=== PATIENT | male | born 2000 | race Caucasian/White ===

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

== ENCOUNTER → 2020-07-25 | Outpatient (CLI) | payer BC ==
--- NOTE | 2020-07-26 08:45 | USB ---
Reason for exam: clinical finding. Indicated problem(s): lump or thickening in the right breast. Physical Findings: Nurse Summary: Patient complains of right breast lump x 3 years, enlarging per patient (nurse mj). US Breast RT Technologist: Tana Leo Right complete breast ultrasound includes all four quadrants, the retroareolar region and axilla. Finding demonstrates no cystic or solid lesion seen. Right side thicker than left, this is stable from comparison 08/18/17. These results were verbally communicated with the patient and result sheet given to the patient on 07/25/20. ASSESSMENT: Negative, BI-RAD 1 RECOMMENDATION: Clinical management of the right breast. Manage on a clinical basis with regard to asymmetry.
== END ==
LOC: RADUSWWP 14:48
PROVIDERS: ATTEND Surgery
DX: N64.89 Other specified disorders of breast (principal)

== ENCOUNTER → 2021-12-11 | Outpatient (CLI) | payer OTHER ==
--- NOTE | 2021-12-11 15:24 | XR ---
Left foot and left ankle HISTORY: Trauma and pain 3 views of the left foot, 3 views of the left ankle There is a minimally displaced proximal fifth metatarsal fracture. No evident dislocation. There is s ome soft tissue swelling noted laterally. IMPRESSION: Proximal fifth metatarsal fracture as described
== END | disposition home or self-care (01) ==
LOC: RADXRMAIN 14:51
PROVIDERS: ATTEND Emergency Medicine
DX: S93.402A Sprain of unspecified ligament of left ankle, initial encounter (principal); S93.602A Unspecified sprain of left foot, initial encounter; X58.XXXA Exposure to other specified factors, initial encounter

== ENCOUNTER 2022-02-21 06:32 | Observation (INO) | payer BC ==
[2022-02-21] MEDS ORDERED: ONDANSETRON 4 MG/2 ML VIAL IVP STA (07:01)
[2022-02-21] MEDS ORDERED: KETOROLAC 15 MG/ML 1 ML VIAL IVP STA (07:01)
[2022-02-21] MEDS ORDERED: SODIUM CHLORIDE 0.9% 1,000 ML IV STA (07:01)
[2022-02-21] MEDS ORDERED: FAMOTIDINE 20 MG/2 ML VIAL IV STA (07:02)
--- NOTE | 2022-02-21 07:07 | ED ---
Abdominal Pain HPI - General Chief Complaint: Abdominal Pain Stated Complaint: Abd Pain Time Seen by Provider: 02/21/22 06:48 Source: patient, RN notes reviewed, old records reviewed Mode of arrival: ambulatory Limitations: no limitations - History of Present Illness Initial Comments: This is a nontoxic-appearing 21-year-old male that presents to the emergency room with 2 weeks of sharp right lower quadrant pain that is progressively getting worse. Patient states he developed nausea and vomiting at 10:30 last night that was yellow in color. He does have chills but did not document a fever. SX: adenoidectomy, no other surgical history. He does vape, denies marijuana or cigarette use. MD Complaint: abdominal pain -: week(s) (2) Location: RLQ Radiation: none Severity scale (1-10): 6 Quality: sharp Consistency: constant Worsens With: other (palpation) Associated Symptoms: nausea, vomiting, diarrhea, chills - Related Data Home Medications Medication Instructions Recorded Confirmed No Known Home Medications 02/21/22 02/21/22 Allergies Allergy/AdvReac Type Severity Reaction Status Date / Time No Known Allergies Allergy Verified 02/21/22 10:00 Review of Systems ROS Statement: Those systems with pertinent positive or pertinent negative responses have been documented in the HPI. ROS Other: All systems not noted in ROS Statement are negative. Past Medical History Past Medical History: No Reported History History of Any Multi-Drug Resistant Organisms: None Reported Past Surgical History: Adenoidectomy Past Psychological History: No Psychological Hx Reported Smoking Status: Former smoker Past Alcohol Use History: Occasional Past Drug Use History: None Reported General Exam Limitations: no limitations General appearance: alert, in no apparent distress Head exam: Present: atraumatic Eye exam: Present: normal appearance. Absent: scleral icterus, conjunctival inj ection ENT exam: Present: mucous membranes moist Neck exam: Present: full ROM. Absent: tenderness, meningismus Respiratory exam: Present: normal lung sounds bilaterally. Absent: respiratory distress, wheezes, rales, rhonchi, stridor, chest wall tenderness, accessory muscle use Cardiovascular Exam: Present: regular rate GI/Abdominal exam: Present: soft, tenderness (Right lower quadrant). Absent: distended, guarding, rebound, rigid Extremities exam: Present: full ROM, normal capillary refill. Absent: tenderness, pedal edema Back exam: Present: normal inspection, full ROM. Absent: tenderness, CVA tenderness (R), CVA tenderness (L), rash noted Neurological exam: Present: alert, oriented X3 Psychiatric exam: Present: normal affect, normal mood Skin exam: Present: warm, dry, normal color. Absent: cyanosis, diaphoretic, petechiae, pallor Course Vital Signs 02/21/22 06:40 Temperature 97.8 F Pulse Rate 75 Respiratory 16 Rate Blood Pressure 125/74 O2 Sat by Pulse 98 Oximetry Medical Decision Making - Medical Decision Making Ultrasound shows thickened in hyperemic appendix reflecting early changes of acute appendicitis no evidence of abscess. There is leukocytosis with right lower quadrant pain. CT ordered per Dr. Lomeli, shows a thickened appendix without surrounding inflammatory change or appendicolith, findings may reflect mild early acute appendicitis. Patient will be admitted to Dr Lomeli for appendectomy. Patient and parents notified of results and plan of care. All are agreeable. VSS - Lab Data Result diagrams: 02/21/22 07:46 02/21/22 07:14 Lab Results 02/21/22 02/21/22 02/21/22 Range/Units 07:14 07:14 07:46 WBC 13.0 H (3.8-10.6) k/uL RBC 4.99 (4.30-5.90) m/uL Hgb 15.3 (13.0-17.5) gm/dL Hct 44.4 (39.0-53.0) % MCV 89.0 (80.0-100.0) fL MCH 30.6 (25.0-35.0) pg MCHC 34.4 (31.0-37.0) g/dL RDW 12.2 (11.5-15.5) % Plt Count 202 (150-450) k/uL MPV 7.9 Neutrophils % 89 % Lymphocytes % 4 % Monocytes % 5 % Eosinophils % 1 % Basophils % 0 % Neutrophils # 11.6 H (1.3-7.7) k/uL Lymphocytes # 0.5 L (1.0-4.8) k/uL Monocytes # 0.6 (0-1.0) k/uL Eosinophils # 0.2 (0-0.7) k/uL Basophils # 0.1 (0-0.2) k/uL Sodium 141 (137-145) mmol/L Potassium 4.1 (3.5-5.1) mmol/L Chloride 100 (98-107) mmol/L Carbon Dioxide 24 (22-30) mmol/L Anion Gap 17 mmol/L BUN 10 (9-20) mg/dL Creatinine 0.95 (0.66-1.25) mg/dL Est GFR (CKD-EPI)AfAm >90 (>60 ml/min/1.73 sqM) Est GFR (CKD-EPI)NonAf >90 (>60 ml/min/1.73 sqM) Glucose 96 (74-99) mg/dL Plasma Lactic Acid Ish 1.0 (0.7-2.0) mmol/L Calcium 10.4 H (8.4-10.2) mg/dL Total Bilirubin 1.3 (0.2-1.3) mg/dL AST 24 (17-59) U/L ALT 14 (4-49) U/L Alkaline Phosphatase 64 (38-126) U/L Total Protein 8.1 (6.3-8.2) g/dL Albumin 5.5 H (3.5-5.0) g/dL Amylase 45 (30-110) U/L Lipase 60 (23-300) U/L Disposition Clinical Impression: Appendicitis Disposition: ADMITTED IP TO THIS [facility] Decision Date: 02/21/22 Decision Time: 08:17
[2022-02-21 07:27] LABS: ALT 14 U/L (4-49); AST 24 U/L (17-59); African American GFR (CKD) >90 (>60 ml/min/1.73 sqM); Albumin 5.5 g/dL (3.5-5.0); Alkaline Phosphatase 64 U/L (38-126); Amylase 45 U/L (30-110); Anion Gap 17 mmol/L; Blood Urea Nitrogen 10 mg/dL (9-20); Calcium 10.4 mg/dL (8.4-10.2); Carbon Dioxide 24 mmol/L (22-30); Chloride 100 mmol/L (98-107); Glucose 96 mg/dL (74-99); Lipase 60 U/L (23-300); Non-African American GFR(CKD) >90 (>60 ml/min/1.73 sqM); Potassium 4.1 mmol/L (3.5-5.1); Sodium 141 mmol/L (137-145); Total Bilirubin 1.3 mg/dL (0.2-1.3); Total Protein 8.1 g/dL (6.3-8.2)
[2022-02-21 07:52] LABS: Basophils # (A) 0.1 k/uL (0-0.2); Basophils % (A) 0 %; Eosinophils # (A) 0.2 k/uL (0-0.7); Eosinophils % (A) 1 %; HCT 44.4 % (39.0-53.0); HGB 15.3 gm/dL (13.0-17.5); Lymphocytes # (A) 0.5 k/uL (1.0-4.8); Lymphocytes % (A) 4 %; MCH 30.6 pg (25.0-35.0); MCHC 34.4 g/dL (31.0-37.0); Mean Platelet Volume 7.9; Monocytes # (A) 0.6 k/uL (0-1.0); Monocytes % (A) 5 %; Neutrophils # (A) 11.6 k/uL (1.3-7.7); Neutrophils % (A) 89 %; Platelet Count 202 k/uL (150-450); RBC 4.99 m/uL (4.30-5.90); RDW 12.2 % (11.5-15.5)
--- NOTE | 2022-02-21 08:07 | US ---
EXAMINATION TYPE: US abdomen APPY DATE OF EXAM: 02/21/2022 COMPARISON: NONE CLINICAL HISTORY: RLQ pain with vomiting TECHNIQUE: Multiple sonographic images of the right lower quadrant were obtained with graded compress ion. FINDINGS: APPENDIX AP Diameter (normal < 6mm): 8.8 mm Measured outer wall to outer wall. Is the appendix seen in its entirety from the proximal cecum to distal end: Yes Is the appendix compressible: No Does the appendix wall appear hypervascular: Yes Is an appendicolith present: No Is there inflammatory changes or free fluid present: No IMPRESSION: Thickened and hyperemic appendix may reflect early changes of the acute appendicitis. No evidence for abscess. Correlate clinically.
[2022-02-21] MEDS ORDERED: metroNIDAZOLE-NS PMX 500 MG in SALINE 1 100ML.BAG IVPB STA (08:15)
[2022-02-21] MEDS ORDERED: cefTRIAXone IN SWFI 1,000 MG/10 ML SYRINGE IVP STA (08:15)
--- NOTE | 2022-02-21 08:55 | CT ---
EXAMINATION TYPE: CT abdomen pelvis w con DATE OF EXAM: 02/21/2022 COMPARISON: None HISTORY: APPY CT DLP: 740.6 mGycm CONTRAST: CT scan of the abdomen and pelvis is performed without Oral Contrast and with IV Contrast, patient in jected with 100 mL of Isovue 300. FINDINGS: LUNG BASES-: No visible nodule. No infiltrate. LIVER/GB: No calcified gallstones. No space occupying hepatic lesion. Biliary tree is of normal ca liber. PANCREAS: No inflammation. No distinct mass. SPLEEN: No splenic enlargement. No lesion seen. ADRENALS: No nodule. No thickening. KIDNEYS/BLADDER: No hydronephrosis. No nephrolithiasis. No distinct renal mass. Urinary bladder g rossly unremarkable. BOWEL: The appendix is thickened up to 1 cm. No surrounding inflammatory change. No evidence for absc ess or perforation. Normal bowel caliber. No inflammation. GENITAL ORGANS: No gross abnormality. LYMPH NODES: No greater than 1cm abdominal or pelvic lymph nodes are appreciated. AORTA: No significant abnormality. OSSEOUS STRUCTURES: No significant abnormality is seen. OTHER: No significant additional abnormality is seen. IMPRESSION: 1. Thickened appendix without surrounding inflammatory change or appendicolith. The findings may refl ect mild early acute appendicitis.
[2022-02-21] MEDS ORDERED: HYDROmorphone 0.5 MG/0.5 ML SYRINGE IVP PRN (09:34)
[2022-02-21] MEDS ORDERED: NALOXONE 0.4 MG/ML 1 ML VIAL IV PRN (09:34)
[2022-02-21] MEDS: SODIUM CHLORIDE 0.9% 1,000 ML IV SCH ×2 (09:42→22:22)
[2022-02-21] MEDS ORDERED: ONDANSETRON 4 MG/2 ML VIAL IVP PRN (10:08)
--- NOTE | 2022-02-21 10:09 | P.GSHP ---
History of Present Illness H&P Date: 02/21/22 CHIEF COMPLAINT: Right lower quadrant abdominal pain HISTORY OF PRESENT ILLNESS: This is a 21-year-old male sent to the ER with complaints of right lower quadrant abdominal pain. His pain became very severe yesterday with multiple episodes of nausea and vomiting starting last night. He also has had chills. Patient reports that over the last 2 weeks he's had some intermittent sharp pains in the right lower quadrant that only lasted a few minutes and resolved on their own. Patient had computed tomography scan abdomen and pelvis showing evidence of a thickened appendix and possible early signs of mild acute appendicitis. Patient has been admitted to the hospital with appendicitis. He had evidence of leukocytosis. He denies any prior abdominal surgical history. Denies any cardiac history. PAST MEDICAL HISTORY: See list. PAST SURGICAL HISTORY: See list. MEDICATIONS: See list. ALLERGIES: See list. SOCIAL HISTORY: No illicit drug use. Denies marijuana or cigarette use. He does vape. REVIEW OF SYSTEMS: CONSTITUTIONAL: Denies fever or chills. HEENT: Denies blurred vision, vision changes, or eye pain. Denies hemoptysis CARDIOVASCULAR: Denies chest pain or pressure. RESPIRATORY: No shortness of breath. GASTROINTESTINAL: See HPI for pertinent findings HEMATOLOGIC: Denies bleeding disorders. GENITOURINARY: Denies any blood in urine or increased urinary frequency. SKIN: Denies pruitis. Denies rash. PHYSICAL EXAM: VITAL SIGNS: Reviewed GENERAL: Well-developed in no acute distress. HEENT: No sclera icterus. Extraocular movements grossly intact. Moist buccal mucosa. Head is atraumatic, normocephalic. No nasal drainage. ABDOMEN: Soft. Nondistended. Right lower quadrant tenderness with palpation NEUROLOGIC: Alert and oriented. Cranial nerves II through XII grossly intact. LABORATORY DATA: WBC is 13 hgb 15.3 platelet 202 Sodium 141 potassium 4.1 creatinine 0.95 lactic acid 1.0 Lipase 60 LFTs IMAGING: Abdominal ultrasound thickened and hyperemic appendix may reflect early changes of acute appendicitis. No evidence of abscess. Computed tomography scan of abdomen and pelvis showing thickened appendix with SURROUNDING inflammatory changes or appendicolith. The findings may reflect mild early acute appendicitis. ASSESSMENT: 1. Acute appendicitis PLAN: -Patient scheduled for laparoscopic appendectomy today with Dr. Lomeli -Keep patient nothing by mouth -Continue antibiotics -Continue IV fluids -Continue pain medication and antiemetics as needed Physician It Systems Analyst Consultant note has been reviewed by physician. Signing provider agrees with the documented findings, assessment, and plan of care. I have personally seen and examined the patient, reviewed the POLITICAL CONSULTANT /PAs history, exam and MDM and agree with the assessment and plan as written. Based on total visit time, I have performed more than 50% of the visit. As above: Patient with right lower quadrant pain and tenderness. Ultrasound and CAT scan consistent with acute appendicitis. Will proceed with laparoscopic, possible open appendectomy at this time. Risks of bleeding, infection, scarring, bladder bowel and ureteral injury, abscess, hernia, conversion reviewed. He understands and wishes to proceed. Past Medical History Past Medical History: No Reported History History of Any Multi-Drug Resistant Organisms: None Reported Past Surgical History: Adenoidectomy Past Psychological History: No Psychological Hx Reported Smoking Status: Former smoker Past Alcohol Use History: Occasional Past Drug Use History: None Reported Medications and Allergies Home Medications Medication Instructions Recorded Confirmed Type No Known Home Medications 02/21/22 02/21/22 History Allergies Allergy/AdvReac Type Severity Reaction Status Date / Time No Known Allergies Allergy Verified 02/21/22 10:00 Surgical - Exam Vital Signs Temp Pulse Resp BP Pulse Ox 97.8 F 75 16 125/74 98 02/21/22 06:40 02/21/22 06:40 02/21/22 06:40 02/21/22 06:40 02/21/22 06:40 Results - Labs 02/21/22 07:46 02/21/22 07:14 Abnormal Lab Results - Last 24 Hours (Table) 02/21/22 02/21/22 Range/Units 07:14 07:46 WBC 13.0 H (3.8-10.6) k/uL Neutrophils # 11.6 H (1.3-7.7) k/uL Lymphocytes # 0.5 L (1.0-4.8) k/uL Calcium 10.4 H (8.4-10.2) mg/dL Albumin 5.5 H (3.5-5.0) g/dL Diabetes panel 02/21/22 Range/Units 07:14 Sodium 141 (137-145) mmol/L Potassium 4.1 (3.5-5.1) mmol/L Chloride 100 (98-107) mmol/L Carbon Dioxide 24 (22-30) mmol/L BUN 10 (9-20) mg/dL Creatinine 0.95 (0.66-1.25) mg/dL Glucose 96 (74-99) mg/dL Calcium 10.4 H (8.4-10.2) mg/dL AST 24 (17-59) U/L ALT 14 (4-49) U/L Alkaline Phosphatase 64 (38-126) U/L Total Protein 8.1 (6.3-8.2) g/dL Albumin 5.5 H (3.5-5.0) g/dL Calcium panel 02/21/22 Range/Units 07:14 Calcium 10.4 H (8.4-10.2) mg/dL Albumin 5.5 H (3.5-5.0) g/dL Pituitary panel 02/21/22 Range/Units 07:14 Sodium 141 (137-145) mmol/L Potassium 4.1 (3.5-5.1) mmol/L Chloride 100 (98-107) mmol/L Carbon Dioxide 24 (22-30) mmol/L BUN 10 (9-20) mg/dL Creatinine 0.95 (0.66-1.25) mg/dL Glucose 96 (74-99) mg/dL Calcium 10.4 H (8.4-10.2) mg/dL Adrenal panel 02/21/22 Range/Units 07:14 Sodium 141 (137-145) mmol/L Potassium 4.1 (3.5-5.1) mmol/L Chloride 100 (98-107) mmol/L Carbon Dioxide 24 (22-30) mmol/L BUN 10 (9-20) mg/dL Creatinine 0.95 (0.66-1.25) mg/dL Glucose 96 (74-99) mg/dL Calcium 10.4 H (8.4-10.2) mg/dL Total Bilirubin 1.3 (0.2-1.3) mg/dL AST 24 (17-59) U/L ALT 14 (4-49) U/L Alkaline Phosphatase 64 (38-126) U/L Total Protein 8.1 (6.3-8.2) g/dL Albumin 5.5 H (3.5-5.0) g/dL
[2022-02-21] MEDS ORDERED: IV FLUID CONTINUATION 1,000 ML IV ONE (14:47)
[2022-02-21] MEDS ORDERED: HEPARIN SODIUM,PORCINE/PF 5,000 UNIT/0.5 ML SYRINGE SQ ONE (14:57)
[2022-02-21] MEDS ORDERED: HEPARIN SODIUM,PORCINE 5,000 UNIT/ML 1 ML VIAL SQ ONE (15:01)
[2022-02-21] MEDS ORDERED: ROCURONIUM 10 MG/ML (5 ML VIAL) IV ONE (15:25)
[2022-02-21] MEDS ORDERED: SUCCINYLCHOLINE CHLORIDE 200 MG/10 ML VIAL IV ONE (15:25)
[2022-02-21] MEDS ORDERED: fentaNYL (PF) 50 MCG/ML 2 ML AMP ONE (15:25)
[2022-02-21] MEDS ORDERED: NEOSTIGMINE 1 MG/ML 10 ML VIAL ONE (15:25)
[2022-02-21] MEDS ORDERED: PROPOFOL 10 MG/ML 20 ML VIAL IV ONE (15:25)
[2022-02-21] MEDS ORDERED: MIDAZOLAM 2 MG/2 ML VIAL ONE (15:25)
[2022-02-21] MEDS ORDERED: GLYCOPYRROLATE 0.2 MG/ML 2 ML VIAL ONE (15:25)
[2022-02-21] MEDS ORDERED: LIDOCAINE 2% INJ 20 MG/ML (2 ML VIAL) ONE (15:25)
[2022-02-21] MEDS ORDERED: BUPIVACAINE (PF) 0.25% 30 ML VIAL SQ ONE ×2 (15:45)
[2022-02-21] MEDS ORDERED: LACTATED RINGERS 1,000 ML IV ONE (16:05)
[2022-02-21] MEDS ORDERED: traMADol 50 MG TAB PO PRN (16:26)
--- NOTE | 2022-02-21 16:35 | P.OP ---
Date of Procedure: 02/21/22 Procedure(s) Performed: PREOPERATIVE DIAGNOSIS: Acute appendicitis POSTOPERATIVE DIAGNOSIS: Same PROCEDURE: Laparoscopic appendectomy SURGEON: Armani EBL: 2 mL ANESTHESIA: General COMPLICATIONS: None OPERATIVE PROCEDURE: The patient was brought and placed on the operating table in the supine position. The patient was placed under general anesthesia. The abdomen was prepped and draped in the usual sterile fashion. A small curvilinear infraumbilical incision was made. The fascia was retracted anteriorly with [place] forceps. The Veress needle was advanced into the peritoneal cavity. The saline drop test was normal. Insufflation took place to 15 mmHg. A 5 mm trocar was then placed. An additional 5 mm suprapubic trocar was placed under direct visualization as well as a 12 mm left lower quadrant trocar under direct visualization. The appendix was inspected. It was acutely inflamed. The mesoappendix was dissected. The base of the appendix was divided using a PDS Endoloop. The mesentery itself was was divided using the LigaSure. The area was then irrigated. No further purulence or bleeding was seen. The appendix was brought out of the peritoneal cavity through the left lower quadrant trocar site within the trocar itself. The fascia at the 12 mm site was closed using a Faizan-Jolene 0 Vicryl stitch. The skin at all 3 sites was closed using 4-0 Monocryl sutures. Skin glue was then applied. DISPOSITION: Stable to recovery room
[2022-02-21] MEDS ORDERED: HYDROmorphone 0.5 MG/0.5 ML SYRINGE IVP ONE ×2 (16:42→16:55)
[2022-02-21] MEDS: KETOROLAC 15 MG/ML 1 ML VIAL IVP SCH ×3 (16:48→23:15)
[2022-02-21] MEDS: PIPERACILLIN-TAZOBACTAM 3.375 GM in SODIUM CHLORIDE 0.9% 100 ML IVPB SCH ×2 (17:36→23:16)
[2022-02-21] MEDS: NICOTINE 14MG/24HR PATCH TRANSDERM SCH (19:08)
[2022-02-22 05:00] VITALS: RESP 14; TEMP 97.9
[2022-02-22] MEDS: KETOROLAC 15 MG/ML 1 ML VIAL IVP SCH (05:18)
[2022-02-22 08:48] VITALS: BP 126/79; PULSE 49
[2022-02-22] MEDS: PIPERACILLIN-TAZOBACTAM 3.375 GM in SODIUM CHLORIDE 0.9% 100 ML IVPB SCH (08:54)
[2022-02-22] MEDS: NICOTINE 14MG/24HR PATCH TRANSDERM SCH (08:55)
--- NOTE | 2022-02-22 10:58 | P.DS ---
Providers Date of admission: 02/21/22 08:20 Expected date of discharge: 02/22/22 Attending physician: Gustavo Lomeli Primary care physician: Abiel He [facility] Course: Discharge diagnosis 1. Acute appendicitis status post laparoscopic appendectomy Hospital course This is a 21-year-old male sent to the ER with complaints of right lower quadrant abdominal pain. He is found have evidence of acute appendicitis. He is status post laparoscopic cholecystectomy. Patient tolerated surgery well. His pain is controlled. He is up and ambulating. He is tolerating diet. He is afebrile. Patient does have minimal bruising around the mid abdomen incision. No drainage. Otherwise clean dry and intact. Patient is stable for discharge. Please refer to chart for further details. Physician Gas Torch Solderer note has been reviewed by physician. Signing provider agrees with the documented findings, assessment, and plan of care. Patient Condition at Discharge: Stable Plan - Discharge Summary Discharge Rx Participant: No New Discharge Prescriptions: New traMADol HCl [Ultram] 50 mg PO Q6H PRN #6 tab PRN Reason: Pain Discharge Medication List traMADol HCl [Ultram] 50 mg PO Q6H PRN #6 tab 02/21/22 [Rx] Follow up Appointment(s)/Referral(s): Gustavo Lomeli MD [Medical Doctor] - 1 Week Abiel He DO [Primary Care Provider] - 1-2 days Activity/Diet/Wound Care/Special Instructions: No driving while taking ultram No lifting over 10 pounds You may shower. No soaking or tub baths for 2 weeks Very light activity until you are reevaluated at your follow up appointment with your surgeon Discharge Disposition: HOME SELF-CARE
[2022-02-22 11:35] LABS: Basophils # (A) 0.1 k/uL (0-0.2); Basophils % (A) 1 %; Eosinophils # (A) 0.1 k/uL (0-0.7); Eosinophils % (A) 1 %; HCT 46.7 % (39.0-53.0); HGB 15.6 gm/dL (13.0-17.5); Lymphocytes % (A) 11 %; MCH 30.7 pg (25.0-35.0); MCHC 33.3 g/dL (31.0-37.0); MCV 92.2 fL (80.0-100.0); Mean Platelet Volume 8.3; Monocytes # (A) 0.6 k/uL (0-1.0); Monocytes % (A) 7 %; Neutrophils # (A) 7.1 k/uL (1.3-7.7); Neutrophils % (A) 78 %; Platelet Count 206 k/uL (150-450); RBC 5.06 m/uL (4.30-5.90); RDW 12.4 % (11.5-15.5); WBC 9.1 k/uL (3.8-10.6)
== END 2022-02-22 11:12 | disposition home or self-care (01) ==
LOC: EC 06:32 → 6NMEDSUR 08:20
PROVIDERS: ADMIT Surgery; ATTEND Surgery
DX: K35.80 Unspecified acute appendicitis (principal); Z87.891 Personal history of nicotine dependence
CPT/HCPCS: 96361; 96374; 96375; 99285; 36415; 88304; 80053; 82150; 83605; 83690; 85025 ×2; 87040; 76705; 74177; 44970; G0378 ×2; J2543 ×2; J2250; J0330; J1644; J2710; J2405; J0696; J3010; J1885 ×2; J2704; J1170; Q9967; J2001

== ENCOUNTER 2022-11-27 16:00 | Emergency (ER) | payer BC ==
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
[2022-11-27] MEDS ORDERED: DIPH,PERTUS(ACELL)TETVAC-LF 0.5 ML VIAL IM ONE (18:54)
[2022-11-27] MEDS ORDERED: BACITRACIN OINT 1 EACH PACKET TOPICAL ONE (18:57)
[2022-11-27 19:30] VITALS: BP 156/90; PULSE 52; RESP 16; TEMP 98.7
== END 2022-11-27 19:31 | disposition home or self-care (01) ==
LOC: EC 16:00
DX: S91.312A Laceration without foreign body, left foot, initial encounter (principal); F17.290 Nicotine dependence, other tobacco product, uncomplicated; Z23 Encounter for immunization; W26.8XXA Contact with other sharp object(s), not elsewhere classified, initial encounter; Y92.814 Boat as the place of occurrence of the external cause; Y93.39 Activity, other involving climbing, rappelling and jumping off
CPT/HCPCS: 90471; 90715; 99282

== ENCOUNTER 2023-05-31 05:48 | Emergency (ER) | payer OTHER, BC ==
[2023-05-31 06:27] VITALS: TEMP 98.5
[2023-05-31 07:12] LABS: Basophils % (A) 0 %; Eosinophils # (A) 0.1 k/uL (0-0.7); Eosinophils % (A) 1 %; HCT 47.7 % (39.0-53.0); HGB 16.3 gm/dL (13.0-17.5); Lymphocytes # (A) 0.6 k/uL (1.0-4.8); Lymphocytes % (A) 3 %; MCH 31.6 pg (25.0-35.0); MCHC 34.3 g/dL (31.0-37.0); MCV 92.3 fL (80.0-100.0); Mean Platelet Volume 7.7; Monocytes # (A) 0.9 k/uL (0-1.0); Monocytes % (A) 5 %; Neutrophils # (A) 15.5 k/uL (1.3-7.7); Neutrophils % (A) 90 %; Platelet Count 195 k/uL (150-450); RBC 5.16 m/uL (4.30-5.90); RDW 12.2 % (11.5-15.5); WBC 17.2 k/uL (3.8-10.6)
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
[2023-05-31 07:24] LABS: ALT 119 U/L (4-49); AST 191 U/L (17-59); African American GFR (CKD) >90 (>60 ml/min/1.73 sqM); Alkaline Phosphatase 59 U/L (38-126); Anion Gap 15 mmol/L; Blood Urea Nitrogen 13 mg/dL (9-20); Calcium 9.3 mg/dL (8.4-10.2); Carbon Dioxide 24 mmol/L (22-30); Chloride 105 mmol/L (98-107); Glucose 127 mg/dL (74-99); Non-African American GFR(CKD) >90 (>60 ml/min/1.73 sqM); Potassium 3.8 mmol/L (3.5-5.1); Sodium 144 mmol/L (137-145); Total Bilirubin 0.5 mg/dL (0.2-1.3)
[2023-05-31 07:31] LABS: INR 1.1 (<1.2); Partial Thromboplastin Time 24.1 sec (22.0-30.0); Prothrombin Time 11.4 sec (10.0-12.5)
[2023-05-31 07:32] LABS: Alcohol 212 mg/dL
[2023-05-31] MEDS ORDERED: LIDOCAINE 1%-EPI 1:100,000 50 ML VIAL SQ STA (07:34)
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
[2023-05-31 08:02] VITALS: RESP 18
[2023-05-31] MEDS ORDERED: SODIUM CHLORIDE 0.9% 1,000 ML IV STA (08:05)
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
[2023-05-31 10:18] VITALS: BP 119/83; PULSE 68
== END 2023-05-31 10:25 | disposition home or self-care (01) ==
LOC: EC 05:48
DX: S01.01XA Laceration without foreign body of scalp, initial encounter (principal); F10.10 Alcohol abuse, uncomplicated; F17.290 Nicotine dependence, other tobacco product, uncomplicated; Y90.7 Blood alcohol level of 200-239 mg/100 ml; V89.2XXA Person injured in unspecified motor-vehicle accident, traffic, initial encounter; Y92.411 Interstate highway as the place of occurrence of the external cause
CPT/HCPCS: 36415; 93005; 86900; 86901; 80053; 84484; 85025; 85610; 85730; 86850; 80320; 73521; 73562; 72125; 70450; 71260; 74177; 99285; 96360; 96361; 12002; Q9967

== ENCOUNTER → 2023-07-12 | Outpatient (CLI) | payer OTHER, BC ==
[2023-07-13 10:48] LABS: Hepatitis A Antibody IgM Nonreactive; Hepatitis B Core IgM Nonreactive; Hepatitis B Surface Antigen Nonreactive; Hepatitis C IgG Antibody Nonreactive
[2023-07-13 13:47] LABS: ALT 23 U/L (10-49); AST 18 U/L (14-35); Albumin/Globulin Ratio 2.17 Ratio (1.60-3.17); Alkaline Phosphatase 78 U/L (41-126); Bilirubin, Conjugated <0.20 mg/dL (0.20-0.40); Bilirubin,Unconjugated >0.60 mg/dL (0.20-1.00); GGT 20 U/L (0-73); Globulin 2.3 g/dL (1.6-3.3); Total Bilirubin 0.8 mg/dL (0.3-1.2); Total Protein 7.3 g/dL (6.2-8.2)
== END | disposition home or self-care (01) ==
LOC: LABWHC1 11:30
PROVIDERS: ATTEND Family Medicine
DX: R94.5 Abnormal results of liver function studies (principal)
CPT/HCPCS: 36415; 80074; 80076; 82977

== ENCOUNTER 2024-05-14 02:03 | Emergency (ER) | payer BC, OTHER ==
[2024-05-14 02:09] VITALS: BP 142/93; PULSE 69; RESP 18; TEMP 97.6
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
[2024-05-14 03:59] LABS: Amphetamine Screen,Urine Not Detected (NotDetected); Barbiturate Screen,Urine Not Detected (NotDetected); Benzodiazepines Screen,Urine Not Detected (NotDetected); Cocaine Screen,Urine Not Detected (NotDetected); Methadone Screen, Urine Not Detected (NotDetected); Opiate Screen,Urine Not Detected (NotDetected); Oxycodone Screen, Urine Not Detected (NotDetected); Phencyclidine Screen,Urine Not Detected (NotDetected); Tricyclic Antidepressant,Urine Not Detected (NotDetected); Urn Cannabinoid Scrn Detected (NotDetected)
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
--- NOTE | 2024-05-14 04:15 | CT ---
EXAM: CT Head Without Intravenous Contrast CLINICAL HISTORY: ITS.REASON CT Reason: pain TECHNIQUE: Axial computed tomography images of the head/brain without intravenous contrast. CTDI is 25.8 mGy and DLP is 781.8 mGy-cm. This CT exam was performed using one or more of the following dose reduction techniques: automated exposure control, adjustment of the mA and/or kV according to patient size, and/or use of iterative reconstruction technique. COMPARISON: No relevant prior studies available. FINDINGS: Brain: No hemorrhage or mass effect. Ventricles: No hydrocephalus. Bones/joints: Unremarkable. Soft tissues: Unremarkable. Sinuses: No air fluid level. Mastoid air cells: Clear. IMPRESSION: No acute hemorrhage, hydrocephalus, or mass effect. EXAM: CT Cervical Spine Without Intravenous Contrast CLINICAL HISTORY: ITS.REASON CT Reason: pain TECHNIQUE: Axial computed tomography images of the cervical spine without intravenous contrast. CTDI is 11.8 mGy and DLP is 393.4 mGy-cm. This CT exam was performed using one or more of the following dose reduction techniques: automated exposure control, adjustment of the mA and/or kV according to patient size, and/or use of iterative reconstruction technique. COMPARISON: No relevant prior studies available. FINDINGS: Vertebrae: No acute fracture. Discs/spinal canal/neural foramina: no significant degenerative changes. Soft tissues: No prevertebral swelling. IMPRESSION: No acute fracture or subluxation.
== END 2024-05-14 04:29 | disposition home or self-care (01) ==
LOC: EC 02:03
DX: Z02.83 Encounter for blood-alcohol and blood-drug test (principal); F10.129 Alcohol abuse with intoxication, unspecified; F17.290 Nicotine dependence, other tobacco product, uncomplicated; Y90.6 Blood alcohol level of 120-199 mg/100 ml
CPT/HCPCS: 36415; 70450; 70486; 72125; 80306; 80320; 99283